=== PATIENT | female | born 1945 ===

== ENCOUNTER 2017-11-28 13:30 | Outpatient (RCR) | payer OTHER | END 2017-12-10 | disposition home or self-care (01) | LOC: PTY 13:30 | DX: R26.89 Other abnormalities of gait and mobility (principal) ==

== ENCOUNTER 2017-12-18 13:00 | Outpatient (RCR) | payer OTHER | END 2018-01-10 | disposition home or self-care (01) | LOC: PTY 13:00 | DX: R26.89 Other abnormalities of gait and mobility (principal) ==

== ENCOUNTER 2018-01-18 11:03 | Outpatient (RCR) | payer OTHER | END 2018-02-09 | disposition home or self-care (01) | LOC: PTY 11:03 | DX: R26.89 Other abnormalities of gait and mobility (principal) ==

== ENCOUNTER 2018-02-11 13:30 | Outpatient (RCR) | payer OTHER | END 2018-03-12 | disposition home or self-care (01) | LOC: PTY 13:30 | DX: R26.89 Other abnormalities of gait and mobility (principal) ==